=== PATIENT | female | born 1955 | race Caucasian/White ===

== ENCOUNTER → 2021-03-28 | Outpatient (CLI) | payer MEDICARE, OTHER ==
[~2021-03-28] MED LIST: ASPIRIN EC325 MG PO; ATORVASTATIN CA40 MG PO; CARVEDILOL3.125 MG PO; ECOTRIN81 MG PO; ESCITALOPRAM OX20 MG PO; GLIPIZIDE5 MG PO; HUMALOG 10100 UNITS/ SC; HUMALOG100 UNIT/1 SC; IMDUR ER TAB 3030 MG PO; L-LYSINE500 MG PO; LANTUS INS100 UTS/M1 SC; LEVOTHYROXINE125 MCG PO; MECLIZINE HCL25 MG PO; PLAVIX 75 MG TA75 MG PO; PROTONIX40 MG PO; RANEXA1000 MG PO; VENTOLIN HFA 66.7 GM INH
== END ==
LOC: CATH 03-20 10:00
DX: R55 Syncope and collapse (principal)

== ENCOUNTER → 2021-07-13 | Outpatient (CLI) | payer MEDICARE, OTHER | LOC: KOH-I 13:54 | DX: S92.351D Displaced fracture of fifth metatarsal bone, right foot, subsequent encounter for fracture with routine healing (principal) | CPT/HCPCS: 73630 ==

== ENCOUNTER → 2021-09-25 | Outpatient (CLI) | payer MEDICARE, OTHER | LOC: KOH-I 14:42 | DX: S92.211A Displaced fracture of cuboid bone of right foot, initial encounter for closed fracture (principal); S92.351A Displaced fracture of fifth metatarsal bone, right foot, initial encounter for closed fracture | CPT/HCPCS: 73630 ==